=== PATIENT | female | born 1985 | race Caucasian/White ===

== ENCOUNTER 2017-06-10 17:40 | Emergency (ER) | payer OTHER ==
[~2017-06-10] VITALS: Ht 170.2 cm; Wt 93.0 kg
[2017-06-10 17:44] VITALS: BP 128/82
[2017-06-10] MEDS ORDERED: IBUPROFEN 200 MG TABLET ONE (18:15)
[2017-06-10] MEDS ORDERED: HYDROmorphone 1 MG/ML, 1ML ONE ×2 (18:20→19:30)
[2017-06-10] MEDS ORDERED: HYDROmorphone 1 MG/ML, 1ML IM ONE ×2 (18:30→19:30)
[2017-06-10] MEDS ORDERED: IBUPROFEN 200 MG TABLET PO ONE (18:30)
[2017-06-10] MEDS ORDERED: PREN1TAB60 PO (20:17)
== END 2017-06-10 20:07 | disposition home or self-care (01) ==
LOC: ED 20:06
DX: O9A.212 Injury, poisoning and certain other consequences of external causes complicating pregnancy, second trimester (principal); S39.012A Strain of muscle, fascia and tendon of lower back, initial encounter; S76.011A Strain of muscle, fascia and tendon of right hip, initial encounter; Z3A.25 25 weeks gestation of pregnancy; X58.XXXA Exposure to other specified factors, initial encounter; Y93.89 Activity, other specified; Y92.89 Other specified places as the place of occurrence of the external cause; Y99.8 Other external cause status
CPT/HCPCS: 96372; 99284; J1170

== ENCOUNTER → 2017-12-12 | Outpatient (CLI) | payer OTHER ==
[~2017-12-12] MED LIST: DOCU-131 PO; IBUP-1222 PO; LABE200T3 PO; NIFE30TA2 PO; OXYC-302 PO; PREN1TAB60 PO
[2017-12-12 15:51] LABS: BASOPHILS # (AUTO) 0.02 x10^3/uL (0-0.1); BASOPHILS % (AUTO) 0 % (0-1); EOSINOPHILS # (AUTO) 0.21 x10^3/uL (0-0.4); EOSINOPHILS % (AUTO) 3 % (1-7); LYMPHOCYTES # (AUTO) 2.22 x10^3/uL (1-3.4); LYMPHOCYTES % (AUTO) 28 % (22-44); MD NO; MEAN CORPUSCULAR HEMOGLOBIN 31.5 pg (27.0-34.8); MEAN CORPUSCULAR HGB CONC 34.8 g/dL (32.4-35.8); MEAN CORPUSCULAR VOLUME 90.3 fL (80-100); MEAN PLATELET VOLUME 8.8 fL (7.4-10.4); MONOCYTES # (AUTO) 0.42 x10^3/uL (0.2-0.8); MONOCYTES % (AUTO) 5 % (2-9); NEUTROPHILS # (AUTO) 5.16 x10^3/uL (1.8-6.8); NEUTROPHILS % (AUTO) 64 % (42-75); PLATELET COUNT 239 x10^3/uL (130-400); RED BLOOD COUNT 4.61 x10^6/uL (3.82-5.3); RED CELL DISTRIBUTION WIDTH 12.1 % (9.6-15.2)
[2017-12-12 15:58] LABS: MICROSCOPIC NOT IND
[2017-12-12 15:58] LABS: ANION GAP 13 mmol/L (5-15); CALCIUM 8.8 mg/dL (8.5-10.1); CHLORIDE 105 mmol/L (98-107); CREATININE 0.96 mg/dL (0.55-1.02)
[2017-12-12 16:02] LABS: CULTURE INDICATED? NO
[2017-12-12 16:14] LABS: INTERNATIONAL NORMALIZED RATIO 0.97 (0.93-1.1)
== END | disposition home or self-care (01) ==
LOC: STAR 14:26
PROVIDERS: ATTEND Neurological Surgery
DX: Z01.818 Encounter for other preprocedural examination (principal); M48.061 Spinal stenosis, lumbar region without neurogenic claudication
CPT/HCPCS: 36415; 71046; 72114; 80048; 81003; 85025; 85610; 85730; 93005

== ENCOUNTER 2017-12-18 12:23 | Day surgery (SDC) | payer BC, OTHER ==
[~2017-12-18] VITALS: Ht 170.2 cm; Wt 89.0 kg
[~2017-12-18 12:23] MED LIST changes: +BACITRACIN 50,000 UNIT ONE; +BUPIVACAINE/PF 0.5% ONE; +THROMBIN 5,000 UNIT VIAL TP ONE
[2017-12-18 12:53] VITALS: BP 111/79
[2017-12-18] MEDS ORDERED: LACTATED RINGERS 1,000 ML IV SCH (12:57)
[2017-12-18] MEDS ORDERED: LIDOCAINE 1%, 2ML SQ PRN (13:00)
[2017-12-18] MEDS ORDERED: LIDOCAINE-MPF 1%, 2ML ONE (13:03)
[2017-12-18 13:23] LABS: HCG UR SG 1.028 (1.003-1.030)
[2017-12-18] MEDS ORDERED: BUPIVACAINE/PF 0.5% ONE (13:42)
[2017-12-18] MEDS ORDERED: FENTANYL PF 250 MCG/5ML ONE (17:05)
[2017-12-18] MEDS ORDERED: MIDAZOLAM 1 MG/ML, 2ML ONE (17:05)
[2017-12-18] MEDS ORDERED: MEPERIDINE/PF 25MG/0.5ML IVPush PRN (18:00)
[2017-12-18] MEDS ORDERED: hydrALAzine 20 MG/ML, 1ML IV PRN (18:00)
[2017-12-18] MEDS ORDERED: DIAZEPAM 5 MG/ML, 2ML IVPush PRN (18:00)
[2017-12-18] MEDS ORDERED: HYDROcodone/APAP 7.5-325MG/15ML UDC PO PRN (18:00)
[2017-12-18] MEDS ORDERED: ALBUTEROL SULFATE 2.5 MG/3 ML NPPB PRN (18:00)
[2017-12-18] MEDS ORDERED: EPHEDRINE 50 MG/ML, 1ML IVPush PRN (18:00)
[2017-12-18] MEDS ORDERED: ACETAMINOPHEN 325 MG TABLET PO PRN (18:00)
[2017-12-18] MEDS ORDERED: OXYcodone 5 MG/5 ML ORAL.SOL UDC PO PRN (18:00)
[2017-12-18] MEDS ORDERED: MIDAZOLAM 1 MG/ML, 2ML IV PRN (18:00)
[2017-12-18] MEDS ORDERED: LABETALOL 5MG/ML, 20ML IV PRN (18:00)
[2017-12-18] MEDS ORDERED: ONDANSETRON 2MG/ML, 2ML IVPush PRN (18:00)
[2017-12-18] MEDS ORDERED: METOPROLOL 1 MG/ML, 5ML IV PRN (18:00)
[2017-12-18] MEDS ORDERED: BUPIVACAINE/PF-EPI 0.5% 1:200K IM ONE (18:31)
[2017-12-18] MEDS ORDERED: THROMBIN 5,000 UNIT VIAL TP ONE (18:32)
[2017-12-18] MEDS ORDERED: BACITRACIN 50,000 UNIT IRRIG ONE (18:32)
[2017-12-18] MEDS ORDERED: SUCCINYLCHOLINE 20 MG/ML, 10ML ONE (18:53)
[2017-12-18] MEDS ORDERED: DEXAMETHASONE 4 MG/ML, 1ML ONE (18:53)
[2017-12-18] MEDS ORDERED: ROCURONIUM 10 MG/ML,10ML ONE (18:53)
[2017-12-18] MEDS ORDERED: PROPOFOL 10 MG/ML, 20ML ONE (18:53)
[2017-12-18] MEDS ORDERED: CEFAZOLIN 1,000 MG ONE (18:53)
[2017-12-18] MEDS ORDERED: ONDANSETRON 2MG/ML, 2ML ONE ×2 (18:53→19:20)
[2017-12-18] MEDS ORDERED: ACETAMINOPHEN 650 MG/20.3 ML UDC ONE (19:07)
[2017-12-18] MEDS ORDERED: FENTANYL PF 100 MCG/2ML ONE (19:08)
[2017-12-18] MEDS ORDERED: OXYcodone 5 MG/5 ML ORAL.SOL UDC ONE (19:08)
[2017-12-18] MEDS: FENTANYL PF 100 MCG/2ML IV PRN ×2 (19:12→19:23)
[2017-12-18] MEDS ORDERED: MEPERIDINE/PF 50 MG/ML ONE (19:14)
[2017-12-18] MEDS ORDERED: HYDROmorphone 2 MG/ML, 1ML ONE (19:31)
[2017-12-18] MEDS: HYDROmorphone 1 MG/ML, 1ML IV PRN ×3 (19:32→19:54)
[2017-12-18] MEDS ORDERED: SCOPOLAMINE PATCH, 1.5MG PATCH.TD72 TD ONE (22:30)
== END 2017-12-18 22:35 | disposition home or self-care (01) ==
LOC: OUT 12:23 → 4NOR 20:15 → OUT 22:35
PROVIDERS: ATTEND Neurological Surgery
DX: M51.16 Intervertebral disc disorders with radiculopathy, lumbar region (principal); Z88.8 Allergy status to other drugs, medicaments and biological substances
CPT/HCPCS: 63030; 72100; 81025; J0330; J0690; J1100; J1170; J2175; J2250; J2405; J2704; J3010; J3490; J7120

== ENCOUNTER → 2020-01-05 | Outpatient (CLI) | payer OTHER, BC ==
[~2020-01-05] MED LIST changes: -BACITRACIN 50,000 UNIT ONE; -BUPIVACAINE/PF 0.5% ONE; +GABA600T PO; -LABE200T3 PO; +LABE200T6 PO; +PHEN35TA PO; -THROMBIN 5,000 UNIT VIAL TP ONE; +minocycline PO
[2020-01-05 10:04] LABS: MICROSCOPIC NOT IND
[2020-01-05 10:09] LABS: CULTURE INDICATED? NO
[2020-01-05 10:11] LABS: BASOPHILS # (AUTO) 0.02 x10^3/uL (0-0.1); BASOPHILS % (AUTO) 0 % (0-1); EOSINOPHILS # (AUTO) 0.25 x10^3/uL (0-0.4); EOSINOPHILS % (AUTO) 4 % (1-7); LYMPHOCYTES # (AUTO) 1.52 x10^3/uL (1-3.4); LYMPHOCYTES % (AUTO) 27 % (22-44); MD NO; MEAN CORPUSCULAR HEMOGLOBIN 32.4 pg (27.0-34.8); MEAN CORPUSCULAR HGB CONC 34.1 g/dL (32.4-35.8); MEAN CORPUSCULAR VOLUME 95.1 fL (80-100); MEAN PLATELET VOLUME 8.6 fL (7.4-10.4); MONOCYTES # (AUTO) 0.34 x10^3/uL (0.2-0.8); MONOCYTES % (AUTO) 6 % (2-9); NEUTROPHILS # (AUTO) 3.47 x10^3/uL (1.8-6.8); NEUTROPHILS % (AUTO) 62 % (42-75); PLATELET COUNT 187 x10^3/uL (130-400); RED BLOOD COUNT 4.53 x10^6/uL (3.82-5.3); RED CELL DISTRIBUTION WIDTH 12.5 % (9.6-15.2)
[2020-01-05 10:15] LABS: ALANINE AMINOTRANSFERASE 26 U/L (12-78); ANION GAP 4 mmol/L (5-15); CALCIUM 8.5 mg/dL (8.5-10.1); CHLORIDE 109 mmol/L (98-107); CREATININE 0.95 mg/dL (0.55-1.02); INTERNATIONAL NORMALIZED RATIO 0.99 (0.93-1.1); PROTHROMBIN TIME 10.5 Seconds (9.6-11.5)
[2020-01-05 10:18] LABS: ALKALINE PHOSPHATASE 60 U/L (45-117); BILIRUBIN,TOTAL 0.5 mg/dL (0.2-1.0); TOTAL PROTEIN 7.6 g/dL (6.4-8.2)
== END | disposition home or self-care (01) ==
LOC: STAR 08:54
PROVIDERS: ATTEND Neurological Surgery
DX: Z01.818 Encounter for other preprocedural examination (principal); M51.26 Other intervertebral disc displacement, lumbar region
CPT/HCPCS: 36415; 71046; 80053; 81003; 85025; 85610; 85730; 93005

== ENCOUNTER → 2020-03-18 | Outpatient (CLI) | payer OTHER, BC ==
[~2020-03-18] MED LIST changes: +CYCL-259 PO; +PHEN15CA2 PO
[2020-03-18 14:17] LABS: BASOPHILS # (AUTO) 0.02 x10^3/uL (0-0.1); BASOPHILS % (AUTO) 0 % (0-1); EOSINOPHILS # (AUTO) 0.09 x10^3/uL (0-0.4); EOSINOPHILS % (AUTO) 2 % (1-7); LYMPHOCYTES # (AUTO) 2.55 x10^3/uL (1-3.4); LYMPHOCYTES % (AUTO) 44 % (22-44); MD NO; MEAN CORPUSCULAR HEMOGLOBIN 32.2 pg (27.0-34.8); MEAN CORPUSCULAR VOLUME 94.7 fL (80-100); MEAN PLATELET VOLUME 7.9 fL (7.4-10.4); MONOCYTES # (AUTO) 0.52 x10^3/uL (0.2-0.8); MONOCYTES % (AUTO) 9 % (2-9); NEUTROPHILS # (AUTO) 2.57 x10^3/uL (1.8-6.8); NEUTROPHILS % (AUTO) 45 % (42-75); PLATELET COUNT 187 x10^3/uL (130-400); RED BLOOD COUNT 4.42 x10^6/uL (3.82-5.3); RED CELL DISTRIBUTION WIDTH 13.2 % (9.6-15.2)
[2020-03-18 14:26] LABS: ANION GAP 5 mmol/L (5-15); CALCIUM 8.4 mg/dL (8.5-10.1); CHLORIDE 108 mmol/L (98-107); CREATININE 1.01 mg/dL (0.55-1.02); INTERNATIONAL NORMALIZED RATIO 0.96 (0.93-1.1); PROTHROMBIN TIME 10.2 Seconds (9.6-11.5)
[2020-03-18 14:29] LABS: MICROSCOPIC INDICATED
== END | disposition home or self-care (01) ==
LOC: STAR 13:23
PROVIDERS: ATTEND Neurological Surgery
DX: Z01.818 Encounter for other preprocedural examination (principal); M51.26 Other intervertebral disc displacement, lumbar region
CPT/HCPCS: 36415; 80048; 81001; 85025; 85610; 85730; 87086; U0001-CS

== ENCOUNTER 2020-03-26 07:30 | Observation (INO) | payer OTHER, BC ==
[~2020-03-26] VITALS: Ht 170.2 cm; Wt 81.0 kg
[~2020-03-26 07:30] MED LIST changes: +BACITRACIN 50,000 UNIT ONE; +BUPIVACAINE/PF-EPI 0.5% 1:200K ONE
[2020-03-26] MEDS ORDERED: LACTATED RINGERS 1,000 ML IV SCH ×2 (07:47→08:06)
[2020-03-26] MEDS ORDERED: CHLORHEXIDINE 15 ML UDC MM STA (07:47)
[2020-03-26] MEDS ORDERED: CHLORHEXIDINE 15 ML UDC ONE (08:14)
[2020-03-26 08:42] LABS: HCG UR SG 1.027 (1.003-1.030)
[2020-03-26] MEDS ORDERED: BUPIVACAINE/PF-EPI 0.25% 1:200K ONE (08:57)
[2020-03-26] MEDS ORDERED: MIDAZOLAM 1 MG/ML, 2ML ONE (09:02)
[2020-03-26] MEDS ORDERED: FENTANYL PF 250 MCG/5ML ONE (09:02)
[2020-03-26] MEDS ORDERED: OxyconTIN ER 20 MG TAB.ER PO ONE (09:30)
[2020-03-26] MEDS ORDERED: ACETAMINOPHEN 500 MG TABLET PO ONE (09:30)
[2020-03-26] MEDS ORDERED: methylPREDNISolone SOD SUCC 125 MG/2 ML ONE (09:39)
[2020-03-26] MEDS ORDERED: FENTANYL PF 100 MCG/2ML ONE (09:39)
[2020-03-26] MEDS ORDERED: DEXAMETHASONE 4 MG/ML, 1ML ONE (10:38)
[2020-03-26] MEDS ORDERED: CEFAZOLIN 1,000 MG ONE ×2 (10:46)
[2020-03-26] MEDS ORDERED: hydrALAzine 20 MG/ML, 1ML IV PRN (11:00)
[2020-03-26] MEDS ORDERED: HYDROmorphone 1 MG/ML, 1ML INJ IVPush PRN ×2 (11:00→13:00)
[2020-03-26] MEDS ORDERED: PROMETHAZINE 25 MG/ML, 1ML IVPush PRN (11:00)
[2020-03-26] MEDS ORDERED: DIAZEPAM 5 MG/ML, 2ML IVPush PRN (11:00)
[2020-03-26] MEDS ORDERED: OXYcodone 5 MG/5 ML ORAL.SOL UDC PO PRN (11:00)
[2020-03-26] MEDS ORDERED: MEPERIDINE/PF 25MG/0.5ML IVPush PRN (11:00)
[2020-03-26] MEDS ORDERED: ONDANSETRON 2MG/ML, 2ML IVPush PRN ×2 (11:00→13:00)
[2020-03-26] MEDS ORDERED: LABETALOL 5MG/ML, 20ML IV PRN (11:00)
[2020-03-26] MEDS ORDERED: FENTANYL PF 100 MCG/2ML IV PRN (11:00)
[2020-03-26] MEDS ORDERED: PROPOFOL 10 MG/ML, 20ML ONE ×2 (11:01→11:51)
[2020-03-26] MEDS ORDERED: ROCURONIUM 10MG/ML,5ML ONE (11:02)
[2020-03-26] MEDS ORDERED: ONDANSETRON 2MG/ML, 2ML ONE (11:52)
[2020-03-26] MEDS ORDERED: MEPERIDINE/PF 100 MG/ML IM PRN (13:00)
[2020-03-26] MEDS ORDERED: SENNA/DOCUSATE TABLET PO PRN (13:00)
[2020-03-26] MEDS ORDERED: PHARMACY MAY ADJ FOR RENAL FX MC PRN (13:00)
[2020-03-26] MEDS ORDERED: DIAZEPAM 5 MG TABLET PO PRN (13:00)
[2020-03-26] MEDS ORDERED: CYCLOBENZAPRINE 10 MG TABLET PO PRN (13:00)
[2020-03-26] MEDS ORDERED: BISACODYL 10 MG SUPP PR PRN (13:00)
[2020-03-26] MEDS ORDERED: DIPHENHYDRAMINE 50 MG/ML, 1ML IVPush PRN (13:00)
[2020-03-26] MEDS ORDERED: MAGNESIUM HYDROXIDE 8%, 30ML UDC PO PRN (13:00)
[2020-03-26] MEDS ORDERED: METHOCARBAMOL 1,000 MG in DEXTROSE 5% 100 ML IV ONE (13:30)
[2020-03-26] MEDS: OXYcodone/APAP 10/325MG TABLET PO PRN ×3 (14:39→23:31)
[2020-03-26] MEDS: NS + 20MEQ KCL 1,000 ML IV SCH (15:38)
[2020-03-26] MEDS: CEFAZOLIN PMX 1GM/50ML 50 ML IVPB SCH (17:59)
[2020-03-26 19:22] VITALS: BP 98/62
[2020-03-26] MEDS: SODIUM CHLORIDE FLUSH 10ML SYR IVF SCH (21:00)
[2020-03-26] MEDS: GABAPENTIN 300 MG CAPSULE PO SCH (21:21)
[2020-03-27 00:44] VITALS: BP 85/43
[2020-03-27] MEDS: CEFAZOLIN PMX 1GM/50ML 50 ML IVPB SCH (02:32)
[2020-03-27] MEDS: NS + 20MEQ KCL 1,000 ML IV SCH (03:32)
[2020-03-27] MEDS: OXYcodone/APAP 10/325MG TABLET PO PRN ×2 (03:32→07:48)
[2020-03-27 03:57] VITALS: BP 90/60
[2020-03-27 07:30] VITALS: BP 99/61
[2020-03-27] MEDS: GABAPENTIN 300 MG CAPSULE PO SCH (07:48)
[2020-03-27] MEDS: SODIUM CHLORIDE FLUSH 10ML SYR IVF SCH (07:48)
== END 2020-03-27 11:36 | disposition home or self-care (01) ==
LOC: OUT 07:30 → ORIP 12:32 → 4NE 13:53 → DCLOUNGE 03-27 11:30
PROVIDERS: ADMIT Neurological Surgery; ATTEND Neurological Surgery
DX: M51.16 Intervertebral disc disorders with radiculopathy, lumbar region (principal); M51.26 Other intervertebral disc displacement, lumbar region; G89.18 Other acute postprocedural pain; Z79.899 Other long term (current) drug therapy
CPT/HCPCS: 63047; 72100; 81025; 96365; 96366; G0378; J0690; J1100; J2250; J2405; J2704; J2800; J2930; J3010; J3480; J7120